=== PATIENT | female | born 1995 | race African-American/Black ===

== ENCOUNTER → 2016-12-25 | Outpatient (CLI) | payer OTHER ==
[~2016-12-25] MED LIST: CONRAY-43 43% 50ML VIAL (Q9960) As Ordered ONE; LIDOCAINE 1% MDV 20ML VIAL As Ordered ONE; TRIAMCINOLONE ACETONIDE SUSP 40 MG/ML VIAL (J3301) As Ordered ONE
--- NOTE | 2016-12-25 15:09 | REP ---
Left hip injection The procedure was performed under the direct supervision of Dr. Celestin. The benefits and risks including but not limited to pain infection and bleeding and anaphylaxis were explained to the patient and informed consent was obtained. The left femoral neck was localized using fluoroscopic guidance. The skin was prepped and draped in a sterile fashion. 1% lidocaine was used as a local anesthetic. Using fluoroscopic guidance a 22-gauge spinal needle was inserted and advanced to the femoral neck. 0.5 ml of Conray 43 was injected to verify placement. 10 ml of a solution containing 9 ml of 1% Xylocaine and 1 ml of Kenalog 40 mg was injected. The needle was then removed. The patient tolerated the procedure well and there were no immediate complications. 7 seconds of fluoro time was utilized for this procedure. Reviewed by PINA Hill 12/25/2016 02:53 PSigned by Justin Celestin MD 12/25/2016 03:00 P
== END ==
LOC: EDSEX 10:31 → M RADPRO 10:31
PROVIDERS: ATTEND Chiropractor
DX: M24.852 Other specific joint derangements of left hip, not elsewhere classified (principal)
CPT/HCPCS: 20610; 77002; J3301; Q9960

== ENCOUNTER → 2018-02-03 | Outpatient (CLI) | payer OTHER | LOC: M RAD 17:00 | DX: Z36.89 Encounter for other specified antenatal screening (principal); Z3A.00 Weeks of gestation of pregnancy not specified | CPT/HCPCS: 76801 ==

== ENCOUNTER 2018-03-18 17:38 | Emergency (ER) | payer OTHER | END 2018-03-18 20:08 | disposition short-term general hospital (02) | LOC: M ED 17:38 | DX: O99.111 Other diseases of the blood and blood-forming organs and certain disorders involving the immune mechanism complicating pregnancy, first trimester (principal); D69.6 Thrombocytopenia, unspecified; F41.9 Anxiety disorder, unspecified; Z3A.14 14 weeks gestation of pregnancy | CPT/HCPCS: 85049 ==

== ENCOUNTER → 2018-03-18 | Outpatient (CLI) | payer OTHER ==
[2018-03-18 15:52] LABS: HEMATOCRIT 21.5 % (36.0-47.0); HEMOGLOBIN 7.8 g/dl (12.0-15.5); MEAN CORPUSCULAR HEMOGLOBIN 31.8 pg (27.0-33.0); MEAN CORPUSCULAR HGB CONC 36.3 g/dl (32.0-36.5); MEAN CORPUSCULAR VOLUME 87.8 fl (80.0-96.0); RED BLOOD COUNT 2.45 10^6/uL (4.00-5.40); RED CELL DISTRIBUTION WIDTH 16.4 % (11.5-14.5); WHITE BLOOD COUNT 3.5 10^3/uL (4.0-10.0)
[2018-03-18 15:55] LABS: PLATELET COUNT, AUTOMATED 8 10^3/uL (150-450); POS COUNT POS FLAG; POSITIVE MORPH POS FLAG; SUSPECT SAMPLE POS FLAG
[2018-03-18 15:56] LABS: IMMATURE PLATELET FRACTION % 2.9 % (0.0-9.6); PLATELET F 8
== END ==
LOC: M LAB 15:38
DX: O99.011 Anemia complicating pregnancy, first trimester (principal); D53.9 Nutritional anemia, unspecified; O99.89 Other specified diseases and conditions complicating pregnancy, childbirth and the puerperium; D72.819 Decreased white blood cell count, unspecified; Z3A.13 13 weeks gestation of pregnancy

== ENCOUNTER 2018-04-14 19:05 | Emergency (ER) | payer OTHER ==
[2018-04-14] MEDS: dexameTHASONE 20 MG/5 ML VIAL (J1100) IV (19:30)
[2018-04-14] MEDS: diphenhydrAMINE INJ 50MG/ML VIAL (J1200) IV (19:47)
== END 2018-04-14 20:23 | disposition home or self-care (01) ==
LOC: M ED 19:05
DX: O99.89 Other specified diseases and conditions complicating pregnancy, childbirth and the puerperium (principal); R21 Rash and other nonspecific skin eruption; T80.92XA Unspecified transfusion reaction, initial encounter; X58.XXXA Exposure to other specified factors, initial encounter; Y92.89 Other specified places as the place of occurrence of the external cause; O99.112 Other diseases of the blood and blood-forming organs and certain disorders involving the immune mechanism complicating pregnancy, second trimester; D69.3 Immune thrombocytopenic purpura; Z3A.17 17 weeks gestation of pregnancy
CPT/HCPCS: J1200